=== PATIENT | male | born 1980 | race Caucasian/White ===

== ENCOUNTER 2018-05-18 16:31 | Emergency (ER) | payer BC, OTHER ==
[~2018-05-18] VITALS: Ht 167.6 cm; Wt 88.5 kg
[2018-05-18] MEDS ORDERED: AUGMENTIN 875-1 EACH PO (17:54)
[2018-05-18 18:04] VITALS: BP 126/87
== END 2018-05-18 18:04 | disposition home or self-care (01) ==
LOC: ER 16:31
DX: S60.453A Superficial foreign body of left middle finger, initial encounter (principal); L08.89 Other specified local infections of the skin and subcutaneous tissue; W45.8XXA Other foreign body or object entering through skin, initial encounter; Y92.89 Other specified places as the place of occurrence of the external cause; Y93.89 Activity, other specified; Y99.8 Other external cause status